=== PATIENT | female | born 1945 ===

== ENCOUNTER 2025-07-31 10:00 | Inpatient (IN) | payer OTHER ==
[~2025-07-31] VITALS: Ht 30.5 cm; Wt 47.6 kg
[2025-07-31] MEDS ORDERED: PROTONIX40 MG PO (11:18)
[2025-07-31] MEDS ORDERED: PEPCID AC20 MG (11:18)
[2025-07-31] MEDS ORDERED: INTEGRA CAPSUL1 EACH PO (11:18)
[2025-07-31] MEDS ORDERED: NEURIN S/L (11:19)
[2025-07-31] MEDS ORDERED: CELEXA10 MG PO (11:20)
[2025-08-01] MEDS ORDERED: RINGERS SOLUTION,LACTATED 1,000 ML IV SCH (14:15)
[2025-08-01 14:59] LABS: INR 1.05
[2025-08-01 15:20] LABS: INR 1.07
[2025-08-01 16:40] VITALS: BP 121/75; O2SAT 99
[2025-08-01] MEDS ORDERED: Cyanocobalamin/Mecobalamin 1 TAB.SL SL SCH (17:00)
[2025-08-01] MEDS ORDERED: SOD FERRIC GLUC COMPLX/SUCROSE 62.5 MG in 0.9 % SODIUM CHLORIDE 50 ML IV SCH (17:00)
[2025-08-01] MEDS ORDERED: PANTOPRAZOLE SODIUM 40 MG in 0.9 % SODIUM CHLORIDE 8 ML IV PUSH NR (17:00)
[2025-08-01] MEDS ORDERED: FAMOTIDINE/PF 20 MG/2 ML VIAL IV PUSH SCH (21:00)
[2025-08-01] MEDS ORDERED: CITALOPRAM PO SCH (21:15)
[2025-08-02 01:57] VITALS: BP 128/72; O2SAT 99
[2025-08-02 06:18] LABS: BASO % 1.0 % (0.1-1.2); EOS # 0.18 (0.04-0.54); EOS % 3.4 % (0.7-7.0); LYMPH # 1.49 (1.18-3.74); LYMPH % 28.5 % (19.3-53.1); MEAN PLATELET VOLUME 11.70 fl (9.4-12.4); MONO # 0.81 (0.24-0.82); NEUT # 2.68 (1.56-6.13); NEUT % 51.4 % (34.0-71.1); RED CELL DISTRIBUTION WIDTH 22.9 % (11.6-14.4)
[2025-08-02 06:52] LABS: MONO % 15.5 % (4.7-12.5)
[2025-08-02 08:00] VITALS: BP 145/74; O2SAT 97
[2025-08-02] MEDS ORDERED: PANTOPRAZOLE SODIUM 40 MG in 0.9 % SODIUM CHLORIDE 8 ML IV PUSH SCH (09:00)
[2025-08-02] MEDS ORDERED: PEG3350/SOD SULF,BICARB,CL/KCL 4,000 ML GALLON PO NR (15:00)
[2025-08-02 16:00] VITALS: BP 166/77; O2SAT 98
[2025-08-02] MEDS ORDERED: PATIENTS OWN MEDICATION (MEDICAMENTO EN PISO) PO SCH (21:00)
[2025-08-03 01:43] VITALS: BP 123/81; O2SAT 97
[2025-08-03 10:06] VITALS: BP 125/73; O2SAT 99
[2025-08-03] MEDS ORDERED: MORPHINE SULFATE 4 MG/ML CARTRIDGE IV PRN (13:30)
[2025-08-03] MEDS ORDERED: DEXTROSE 50 % IN WATER 0.5 G/ML DISP.SYRIN IV PRN (13:30)
[2025-08-03] MEDS ORDERED: OxyCODONE HCL 5 MG TABLET (ROXICODONE) PO PRN (13:30)
[2025-08-03] MEDS ORDERED: ONDANSETRON HCL 2 MG/ML VIAL IV PRN (13:30)
[2025-08-03] MEDS ORDERED: 0.9 % SODIUM CHLORIDE 1,000 ML IV SCH (13:30)
[2025-08-03] MEDS ORDERED: ACETAMINOPHEN 500 MG GEL..CAP PO SCH (14:00)
[2025-08-03] MEDS ORDERED: LIDOCAINE HCL 1% 20 ML VIAL IJ ONE (14:15)
[2025-08-03] MEDS ORDERED: CEFTRIAXONE SODIUM 2,000 MG VIAL IV ONE (14:15)
[2025-08-03] MEDS ORDERED: METRONIDAZOLE/SODIUM CHLORIDE 500 MG/100 ML PIGGYBACK IV ONE (14:15)
[2025-08-03] MEDS ORDERED: BUPIVACAINE HCL 30 ML VIAL IV ONE (14:15)
[2025-08-03] MEDS ORDERED: SUGAMMADEX SODIUM 200 MG/2 ML VIAL IV ONE (16:15)
[2025-08-03] MEDS ORDERED: GABAPENTIN 300 MG CAPSULE PO SCH (17:00)
[2025-08-03] MEDS ORDERED: HYOSCYAMINE SULFATE 0.125 MG TAB.SUBL SL SCH (17:00)
[2025-08-03] MEDS ORDERED: METRONIDAZOLE/SODIUM CHLORIDE 500 MG/100 ML PIGGYBACK IV SCH (17:00)
[2025-08-03 18:18] LABS: BASO % 0.4 % (0.1-1.2); EOS # 0.01 (0.04-0.54); EOS % 0.1 % (0.7-7.0); LYMPH # 0.69 (1.18-3.74); LYMPH % 10.3 % (19.3-53.1); MEAN PLATELET VOLUME 11.60 fl (9.4-12.4); MONO # 0.48 (0.24-0.82); MONO % 7.1 % (4.7-12.5); NEUT # 5.50 (1.56-6.13); NEUT % 81.8 % (34.0-71.1); RED CELL DISTRIBUTION WIDTH 23.0 % (11.6-14.4)
[2025-08-03 18:25] VITALS: BP 124/74; O2SAT 99
[2025-08-03 19:05] LABS: BUN CREA RATIO 11.0 (7.0-25.0); CREATININE SERUM 0.64 mg/dL (0.55-1.02); GFR 89.51; GLUCOSE FASTING 133.0 mg/dL (65-100); OSMOLALITY SERUM 279.0 MOSM/KG (275-295)
[2025-08-03] MEDS ORDERED: FAMOTIDINE/PF 20 MG/2 ML VIAL IV PUSH SCH (21:00)
[2025-08-04 01:14] VITALS: BP 140/81; O2SAT 99
[2025-08-04 06:48] LABS: BASO % 0.2 % (0.1-1.2); EOS # 0.00 (0.04-0.54); EOS % 0.0 % (0.7-7.0); LYMPH # 0.34 (1.18-3.74); LYMPH % 3.1 % (19.3-53.1); MEAN PLATELET VOLUME 11.80 fl (9.4-12.4); MONO # 0.52 (0.24-0.82); MONO % 4.8 % (4.7-12.5); NEUT # 9.91 (1.56-6.13); NEUT % 91.5 % (34.0-71.1); RED CELL DISTRIBUTION WIDTH 22.4 % (11.6-14.4)
[2025-08-04 07:23] LABS: BUN CREA RATIO 10.0 (7.0-25.0); CREATININE SERUM 0.63 mg/dL (0.55-1.02); GFR 91.16; GLUCOSE FASTING 148.0 mg/dL (65-100); OSMOLALITY SERUM 276.0 MOSM/KG (275-295)
[2025-08-04 08:00] VITALS: BP 180/82; O2SAT 100
[2025-08-04 10:54] VITALS: BP 164/72
[2025-08-04] MEDS ORDERED: SODIUM CHLORIDE 0.45 % 1,000 ML IV SCH (11:00)
[2025-08-04] MEDS ORDERED: ENALAPRILAT DIHYDRATE 1.25 MG/ML VIAL IV PRN (11:00)
[2025-08-04] MEDS ORDERED: MAGNESIUM SULFATE IN WATER 50 ML IV NR (11:45)
[2025-08-04] MEDS ORDERED: POTASSIUM CHLORIDE 20MEQ/100ML H2O PB IV NR (11:45)
[2025-08-04 16:00] VITALS: BP 112/66; O2SAT 97
[2025-08-04] MEDS ORDERED: ENOXAPARIN SODIUM 40 MG/0.4 ML SYRINGE SUBCUTANEO SCH (17:00)
[2025-08-05 01:19] VITALS: BP 131/79; O2SAT 96
[2025-08-05 07:02] LABS: BASO % 0.3 % (0.1-1.2); EOS # 0.00 (0.04-0.54); EOS % 0.0 % (0.7-7.0); LYMPH # 0.59 (1.18-3.74); LYMPH % 5.8 % (19.3-53.1); MEAN PLATELET VOLUME 12.10 fl (9.4-12.4); MONO # 0.75 (0.24-0.82); MONO % 7.3 % (4.7-12.5); NEUT # 8.84 (1.56-6.13); NEUT % 86.3 % (34.0-71.1); RED CELL DISTRIBUTION WIDTH 22.5 % (11.6-14.4)
[2025-08-05 08:04] LABS: BUN CREA RATIO 20.0 (7.0-25.0); CREATININE SERUM 0.49 mg/dL (0.55-1.02); GFR 121.83; GLUCOSE FASTING 126.0 mg/dL (65-100); OSMOLALITY SERUM 280.0 MOSM/KG (275-295)
[2025-08-05 08:54] VITALS: BP 145/77; O2SAT 97
[2025-08-05] MEDS ORDERED: ENOXAPARIN SODIUM 40 MG/0.4 ML SYRINGE SUBCUTANEO SCH (09:00)
[2025-08-05] MEDS ORDERED: POTASSIUM PHOS,M-BASIC-D-BASIC 15 MM in 0.9 % SODIUM CHLORIDE 250 ML IV NR (10:45)
[2025-08-05 16:00] VITALS: BP 157/82; O2SAT 96
[2025-08-06 00:15] VITALS: BP 96/64; O2SAT 96
[2025-08-06 08:18] VITALS: BP 156/82; O2SAT 96
[2025-08-06 15:00] VITALS: BP 122/83; O2SAT 95
[2025-08-07] VITALS: BP 168/80; O2SAT 97
[2025-08-07 06:27] LABS: BASO % 0.4 % (0.1-1.2); EOS # 0.05 (0.04-0.54); EOS % 0.7 % (0.7-7.0); LYMPH # 0.60 (1.18-3.74); LYMPH % 8.0 % (19.3-53.1); MEAN PLATELET VOLUME 11.90 fl (9.4-12.4); MONO # 0.73 (0.24-0.82); MONO % 9.7 % (4.7-12.5); NEUT # 6.06 (1.56-6.13); NEUT % 80.9 % (34.0-71.1); RED CELL DISTRIBUTION WIDTH 23.4 % (11.6-14.4)
[2025-08-07 06:58] LABS: ALT/SGPT 18.0 U/L (12-78); AST/SGOT 16.0 U/L (15-37); BILIRUBIN TOTAL 0.68 mg/dL (0.3-1.2); BUN CREA RATIO 23.0 (7.0-25.0); CREATININE SERUM 0.47 mg/dL (0.55-1.02); GFR 127.83; GLOBULINA 2.7 G/DL (2.4-3.5); GLUCOSE FASTING 95.0 mg/dL (65-100); OSMOLALITY SERUM 277.0 MOSM/KG (275-295)
[2025-08-07 08:34] VITALS: BP 156/78; O2SAT 97
[2025-08-07] MEDS ORDERED: SOD FERRIC GLUC COMPLX/SUCROSE 62.5 MG in 0.9 % SODIUM CHLORIDE 50 ML IV NR (11:00)
[2025-08-07 17:07] VITALS: BP 133/84; O2SAT 96
[2025-08-08 00:30] VITALS: BP 119/71; O2SAT 98
[2025-08-08 08:00] VITALS: BP 118/71; O2SAT 98
[2025-08-08] MEDS ORDERED: SOD FERRIC GLUC COMPLX/SUCROSE 62.5 MG in 0.9 % SODIUM CHLORIDE 50 ML IV SCH (09:00)
[2025-08-08] MEDS ORDERED: HYOSCYAMINE0.125 M1 SL (13:47)
[2025-08-08] MEDS ORDERED: PAIN RELIEVER500 M2 PO (13:47)
== END 2025-08-08 15:04 | disposition home or self-care (01) | DRG 330 ==
LOC: SURH 08-01 12:35
PROVIDERS: Internal Medicine; Internal Medicine Geriatric Medicine; ADMIT Surgery; ATTEND Surgery
PROC: 30233N1 Transfusion of Nonautologous Red Blood Cells into Peripheral Vein, Percutaneous Approach (ICD-10-PCS; 2025-08-01)
PROC: 07BC4ZZ Excision of Pelvis Lymphatic, Percutaneous Endoscopic Approach (ICD-10-PCS; 2025-08-03)
PROC: 07BB4ZZ Excision of Mesenteric Lymphatic, Percutaneous Endoscopic Approach (ICD-10-PCS; 2025-08-03)
PROC: 0DTF4ZZ Resection of Right Large Intestine, Percutaneous Endoscopic Approach (ICD-10-PCS; principal; 2025-08-03 18:00)
DX: C18.0 Malignant neoplasm of cecum (principal); K56.51 Intestinal adhesions [bands], with partial obstruction; D64.89 Other specified anemias; R59.0 Localized enlarged lymph nodes; R97.0 Elevated carcinoembryonic antigen [CEA]; R11.2 Nausea with vomiting, unspecified; Z88.6 Allergy status to analgesic agent; Z88.2 Allergy status to sulfonamides; Z91.018 Allergy to other foods; Z88.3 Allergy status to other anti-infective agents